=== PATIENT | female | born 1985 | race Hispanic/Latino ===

== ENCOUNTER 2017-12-31 11:40 | Emergency (ER) | payer OTHER ==
[~2017-12-31] VITALS: Ht 154.9 cm; Wt 84.0 kg
[2017-12-31] MEDS ORDERED: BACITRACIN3.5 GM TP (12:25)
[2017-12-31] MEDS ORDERED: BACITRACIN3.5 GM TOP (12:46)
[2017-12-31] MEDS ORDERED: HYDROCO/APAP1 TA9 PO (12:47)
[2017-12-31] MEDS ORDERED: MOTRIN400 MG PO ×2 (12:47→13:43)
[2017-12-31 13:55] VITALS: BP 150/89
== END 2017-12-31 13:55 | disposition home or self-care (01) | DRG 935 ==
LOC: ED 11:40
PROC: 2W2CX4Z Dressing of Right Lower Arm using Bandage (ICD-10-PCS; principal; 2017-12-31)
DX: T23.271A Burn of second degree of right wrist, initial encounter (principal); T31.0 Burns involving less than 10% of body surface; X10.1XXA Contact with hot food, initial encounter; Y93.G3 Activity, cooking and baking; Y92.000 Kitchen of unspecified non-institutional (private) residence as the place of occurrence of the external cause

== ENCOUNTER 2020-01-19 | Emergency (ER) | payer BC ==
[~2020-01-19] MED LIST: BACITRACIN3.5 GM TOP; BACITRACIN3.5 GM TP; HYDROCO/APAP1 TA9 PO; MOTRIN400 MG PO
[2020-01-19 11:49] LABS: HEMATOCRIT 40.9 % (37.0-47.0); HEMOGLOBIN 13.3 g/dl (12.0-16.0); IMMATURE GRANULOCYTES 2.3 % (0.0-5.0); MEAN CELL VOLUME 87.6 fL CALC (80.0-100.0); MEAN CORPUSCULAR HGB 28.5 pG CALC (26.0-32.0); MEAN CORPUSCULAR HGB CONC 32.5 g/dL CAL (32.0-36.0); NEUT# 3.91 thou/uL (2.00-7.15); RED BLOOD COUNT 4.67 mill/uL (4.20-5.60); RED CELL DISTRI WIDTH 13.2 % (11.5-15.5)
[2020-01-19 12:41] LABS: ANION GAP 9 (6-22 (CALC)); BUN 12 mg/dL (7-17); BUN/CREATININE RATIO 21 (12-20 (CALC)); CARBON DIOXIDE 27 mmol/l (22-30); CHLORIDE 105 mmol/l (95-108); CREATININE 0.6 mg/dL (0.5-1.0); GFR > 60 ML/MIN (>=60 (CALC)); GFR FOR AFR.AMER. > 60 ML/MIN (>=60 (CALC)); POTASSIUM 3.2 mmol/l (3.5-5.1); SODIUM 138 mmol/l (137-146)
[2020-01-19] MEDS ORDERED: PREDNISONE50 MG PO (15:00)
[2020-01-19] MEDS ORDERED: EPIPEN 2-P0.3 MG/0.3 IM (15:00)
== END 2020-01-19 15:22 | disposition home or self-care (01) | DRG 916 ==
PROVIDERS: Family Medicine
DX: T78.2XXA Anaphylactic shock, unspecified, initial encounter (principal)

== ENCOUNTER 2021-02-26 11:58 | Emergency (ER) | payer BC ==
[~2021-02-26] VITALS: Ht 154.9 cm; Wt 77.0 kg
[~2021-02-26 11:58] MED LIST changes: +EPIPEN 2-P0.3 MG/0.3 IM; +PREDNISONE50 MG PO
[2021-02-26 13:01] LABS: URINE BILIRUBIN - DIPSTICK NEGATIVE (NEGATIVE); URINE BLOOD DIPSTICK LARGE (NEGATIVE); URINE COLOR YELLOW; URINE GLUCOSE - DIPSTICK NEGATIVE (NEGATIVE); URINE KETONE NEGATIVE (NEGATIVE); URINE LEUK ESTERASE NEGATIVE (NEGATIVE); URINE NITRITE - DIPSTICK POSITIVE (Negative); URINE PROTEIN - DIPSTICK 30 mg/dL (NEG-TRACE); URINE SPECIFIC GRAVITY >=1.030; URINE UROBILINOGEN - DIPSTICK 0.2 E.U./dL (0.2)
[2021-02-26 13:03] LABS: URINE RBC >100 RBC/hpf (0-5)
[2021-02-26 13:04] LABS: URINE AMORPH SEDIMENT MANY hpf (NONE-FEW); URINE WBC 0-2 WBC/hpf (0-5)
[2021-02-26 13:05] LABS: URINE BACTERIA FEW hpf
[2021-02-26 13:24] LABS: HEMATOCRIT 41.1 % (37.0-47.0); HEMOGLOBIN 13.2 g/dl (12.0-16.0); IMMATURE GRANULOCYTES 1.9 % (0.0-5.0); MEAN CELL VOLUME 88.2 fL CALC (80.0-100.0); MEAN CORPUSCULAR HGB 28.3 pG CALC (26.0-32.0); MEAN CORPUSCULAR HGB CONC 32.1 g/dL CAL (32.0-36.0); NEUT# 7.43 thou/uL (2.00-7.15); RED BLOOD COUNT 4.66 mill/uL (4.20-5.60); RED CELL DISTRI WIDTH 13.2 % (11.5-15.5)
[2021-02-26 13:45] LABS: ALBUMIN 4.4 g/dL (3.2-5.0); ALKALINE PHOSPHATASE 56 u/l (38-126); ANION GAP 13 (6-22 (CALC)); BILIRUBIN, TOTAL 0.5 mg/dL (0.0-1.4); BUN 11 mg/dL (7-17); BUN/CREATININE RATIO 21 (12-20 (CALC)); CARBON DIOXIDE 22 mmol/l (22-30); CHLORIDE 103 mmol/l (95-108); CREATININE 0.6 mg/dL (0.5-1.0); GFR > 60 ML/MIN (>=60 (CALC)); GFR FOR AFR.AMER. > 60 ML/MIN (>=60 (CALC)); LIPASE 61 u/l (23-300); SGOT/AST 32 u/l (14-36); SODIUM 134 mmol/l (137-146); TOTAL PROTEIN 8.1 g/dL (6.3-8.2)
[2021-02-26 13:46] LABS: POTASSIUM 4.1 mmol/l (3.5-5.1)
[2021-02-26] MEDS ORDERED: PEPCID20 MG PO (16:01)
[2021-02-26] MEDS ORDERED: NITROFURANTN100 M2 PO (16:01)
[2021-02-26 16:15] VITALS: BP 122/85
== END 2021-02-26 16:15 | disposition home or self-care (01) | DRG 392 ==
LOC: ED 11:58
PROVIDERS: Family Medicine
DX: R10.13 Epigastric pain (principal); N39.0 Urinary tract infection, site not specified
CPT/HCPCS: Q9967

== ENCOUNTER 2023-03-23 20:00 | Emergency (ER) | payer OTHER ==
[~2023-03-23] VITALS: Ht 154.9 cm; Wt 80.0 kg
[~2023-03-23 20:00] MED LIST changes: +NITROFURANTN100 M2 PO; +PEPCID20 MG PO
[2023-03-23 20:51] LABS: BASO% 0.2 % (0-3); HEMATOCRIT 39.7 % (37.0-47.0); HEMOGLOBIN 12.8 g/dl (12.0-16.0); IMMATURE GRANULOCYTES 3.1 % (0.0-5.0); LYMPH% 29.6 % (15-41); MEAN CELL VOLUME 86.3 fL CALC (80.0-100.0); MEAN CORPUSCULAR HGB 27.8 pG CALC (26.0-32.0); MEAN CORPUSCULAR HGB CONC 32.2 g/dL CAL (32.0-36.0); NEUT# 6.31 thou/uL (2.00-7.15); NEUT% 60.1 % (42-76); RED BLOOD COUNT 4.6 mill/uL (4.20-5.60)
[2023-03-23 21:02] LABS: ALBUMIN 4.8 g/dL (3.2-5.0); ALKALINE PHOSPHATASE 58 u/l (38-126); AMYLASE 89 u/l (30-110); ANION GAP 14 (6-22 (CALC)); BILIRUBIN, TOTAL 0.3 mg/dL (0.02-1.3); BUN 14 mg/dL (7-17); BUN/CREATININE RATIO 15 (12-20 (CALC)); CARBON DIOXIDE 25 mmol/l (22-30); CHLORIDE 104 mmol/l (95-108); CREATININE 0.9 mg/dL (0.5-1.0); GFR FOR AFR.AMER. > 60 ML/MIN (>=60 (CALC)); GFR OTHER RACES > 60 ML/MIN (>=60 (CALC)); LIPASE 131 u/l (23-300); SGOT/AST 22 u/l (14-36); SODIUM 140 mmol/l (137-146); TOTAL PROTEIN 7.8 g/dL (6.3-8.2)
[2023-03-23 21:14] LABS: URINE BILIRUBIN - DIPSTICK NEGATIVE (NEGATIVE); URINE BLOOD DIPSTICK MODERATE (NEGATIVE); URINE COLOR YELLOW; URINE GLUCOSE - DIPSTICK NEGATIVE (NEGATIVE); URINE KETONE NEGATIVE (NEGATIVE); URINE LEUK ESTERASE NEGATIVE (NEGATIVE); URINE PROTEIN - DIPSTICK NEGATIVE (NEG-TRACE); URINE SPECIFIC GRAVITY 1.015; URINE UROBILINOGEN - DIPSTICK 0.2 E.U./dL (0.2)
[2023-03-23 21:17] LABS: URINE NITRITE - DIPSTICK NEGATIVE (Negative)
[2023-03-23 21:24] LABS: URINE SQUAMOUS EPITHELIAL CELL FEW EPI/hpf (0-FEW); URINE WBC 0-2 WBC/hpf (0-5)
[2023-03-23] MEDS ORDERED: LORTAB 1010 MG PO (22:18)
[2023-03-23] MEDS ORDERED: TAMSULOSIN0.4 MG PO (22:18)
[2023-03-23 22:53] VITALS: BP 164/109
[2023-03-24] MEDS ORDERED: NAPROXEN500 MG PO (21:01)
[2023-03-24] MEDS ORDERED: ONDANSETRON4 MG PO (21:08)
== END 2023-03-23 22:54 | disposition home or self-care (01) | DRG 694 ==
LOC: ED 20:00
PROVIDERS: Emergency Medicine
DX: N20.0 Calculus of kidney (principal)

== ENCOUNTER 2023-03-24 17:54 | Emergency (ER) | payer OTHER ==
[~2023-03-24] VITALS: Ht 154.9 cm; Wt 83.5 kg
[2023-03-24] VITALS (8 sets, daily range): BP systolic 145–188; BP diastolic 97–126
[~2023-03-24 17:54] MED LIST changes: +LORTAB 1010 MG PO; +TAMSULOSIN0.4 MG PO
[2023-03-24 20:11] LABS: BASO% 0.1 % (0-3); HEMATOCRIT 40.6 % (37.0-47.0); HEMOGLOBIN 13.1 g/dl (12.0-16.0); IMMATURE GRANULOCYTES 1.5 % (0.0-5.0); LYMPH% 7.4 % (15-41); MEAN CELL VOLUME 86.9 fL CALC (80.0-100.0); MEAN CORPUSCULAR HGB 28.1 pG CALC (26.0-32.0); MEAN CORPUSCULAR HGB CONC 32.3 g/dL CAL (32.0-36.0); MONO% 5.5 % (2-13); NEUT# 11.26 thou/uL (2.00-7.15); NEUT% 85.5 % (42-76); RED BLOOD COUNT 4.67 mill/uL (4.20-5.60)
[2023-03-24 20:19] LABS: ALBUMIN 4.5 g/dL (3.2-5.0); ALKALINE PHOSPHATASE 56 u/l (38-126); ANION GAP 14 (6-22 (CALC)); BUN 12 mg/dL (7-17); BUN/CREATININE RATIO 11 (12-20 (CALC)); CARBON DIOXIDE 22 mmol/l (22-30); CHLORIDE 107 mmol/l (95-108); CREATININE 1.1 mg/dL (0.5-1.0); GFR FOR AFR.AMER. > 60 ML/MIN (>=60 (CALC)); GFR OTHER RACES 55 ML/MIN (>=60 (CALC)); POTASSIUM 4.7 mmol/l (3.5-5.1); SGOT/AST 29 u/l (14-36); SODIUM 137 mmol/l (137-146); TOTAL PROTEIN 7.8 g/dL (6.3-8.2)
[2023-03-24 20:20] LABS: BILIRUBIN, TOTAL 0.5 mg/dL (0.02-1.3)
[2023-03-24 20:31] LABS: URINE BILIRUBIN - DIPSTICK NEGATIVE (NEGATIVE); URINE BLOOD DIPSTICK SMALL (NEGATIVE); URINE COLOR YELLOW; URINE GLUCOSE - DIPSTICK NEGATIVE (NEGATIVE); URINE KETONE TRACE mg/dL (NEGATIVE); URINE LEUK ESTERASE NEGATIVE (NEGATIVE); URINE PROTEIN - DIPSTICK NEGATIVE (NEG-TRACE); URINE SPECIFIC GRAVITY 1.025; URINE UROBILINOGEN - DIPSTICK 0.2 E.U./dL (0.2)
[2023-03-24 20:35] LABS: URINE NITRITE - DIPSTICK NEGATIVE (Negative)
[2023-03-24 20:36] LABS: URINE SQUAMOUS EPITHELIAL CELL FEW EPI/hpf (0-FEW); URINE WBC 0-2 WBC/hpf (0-5)
[2023-03-24] MEDS ORDERED: NAPROXEN500 MG PO (21:01)
[2023-03-24] MEDS ORDERED: ONDANSETRON4 MG PO (21:08)
== END 2023-03-24 21:29 | disposition home or self-care (01) | DRG 694 ==
LOC: ED 17:54
PROVIDERS: Emergency Medicine
DX: N20.9 Urinary calculus, unspecified (principal)